=== PATIENT | male | born 1950 | race Caucasian/White ===

== ENCOUNTER 2022-12-20 07:57 | Day surgery (SDC) | payer MEDICARE, BC ==
[2022-12-19 10:16] LABS: BASOPHILS % (AUTO) 0.5 % (0-1); EOSINOPHILS # (AUTO) 0.1 X10'3 (0-0.9); EOSINOPHILS % (AUTO) 2.7 % (0-6); HEMATOCRIT 43.3 % (42.0-52.0); HEMOGLOBIN 14.7 g/dl (14.0-17.9); LYMPHOCYTES # (AUTO) 1.1 X10'3 (1.1-4.8); LYMPHOCYTES % (AUTO) 22.3 % (21-51); MEAN CORPUSCULAR HEMOGLOBIN 33.5 PG (27.0-31.0); MEAN CORPUSCULAR VOLUME 98.5 FL (78-98); MEAN PLATELET VOLUME 7.9 FL (7.4-10.4); MONOCYTES # (AUTO) 0.4 X10'3 (0-0.9); MONOCYTES % (AUTO) 8.5 % (2-12); NEUTROPHILS # (AUTO) 3.3 X10'3 (1.8-7.7); PLATELET COUNT 213 X10'3 (140-440); RED CELL DISTRIBUTION WIDTH 13.1 % (11.5-14.5)
[2022-12-19 10:28] LABS: ALBUMIN 3.7 G/DL (3.4-5.0); ANION GAP 14 (8-16); BLOOD UREA NITROGEN 11 MG/DL (7-18); BUN/CREATININE RATIO 12.6 (10.0-20.0); CHLORIDE 105 MMOL/L (99-107); CREATININE 0.87 MG/DL (0.60-1.10); GLUCOSE 119 MG/DL (70-104); SODIUM 142 MMOL/L (135-145); TOTAL CARBON DIOXIDE 23.2 MMOL/L (24-32); eGFR 87 ML/MIN
[~2022-12-20] VITALS: Ht 182.9 cm; Wt 130.8 kg
[2022-12-20] VITALS (17 sets, daily range): BP systolic 113–160; BP diastolic 65–85; PULSE 47–68; RESP 11–20; TEMP 98.5; O2SAT 93–97
[~2022-12-20 07:57] MED LIST: AMLO2.5T2 PO; AMOX-441 PO; ASPI-1264 PO; ATEN-169 PO; ATOR10TA87 PO; CLOP75TA15 PO; GARL400T2 PO; HYDR-4353 PO; HYDR25TA4 PO; MILK200C4 PO; MORP30CA16 PO; OMEG1CAP2 PO; RANO500T3 PO; UBID1CAP54 PO; VALS160T2 PO; VITAMIN C PO; VITAMIN D PO
[2022-12-20] MEDS ORDERED: normal saline 1000ml 1,000 ML IV SCH (08:10)
[2022-12-20] MEDS ORDERED: morphine 10mg/ml inj. IV ONE (08:10)
[2022-12-20] MEDS ORDERED: diphenhydrAMINE 25mg capsule PO ONE (08:10)
[2022-12-20] MEDS ORDERED: MIDAZolam 1mg/ml 10ml vial IV ONE (08:10)
[2022-12-20] MEDS ORDERED: atropine 0.1mg/ml 10ml syringe IV ONE (08:10)
[2022-12-20] MEDS ORDERED: LORazepam 0.5 MG tablet PO ONE (08:10)
[2022-12-20] MEDS ORDERED: amiodarone 150mg/dext, iso-os 100 ML IV ONE (08:10)
[2022-12-20] MEDS ORDERED: PROP120C2 (08:35)
[2022-12-20] MEDS ORDERED: APIX5TAB3 PO (08:35)
[2022-12-20] MEDS ORDERED: NITR0.4T51 SL (08:35)
[2022-12-20] MEDS ORDERED: IRBE300T18 PO (08:35)
[2022-12-20] MEDS ORDERED: MAGN200T PO (08:35)
[2022-12-20] MEDS ORDERED: IBUP-2697 PO (08:35)
[2022-12-20] MEDS ORDERED: AMI200T (08:35)
== END 2022-12-20 10:40 | disposition home or self-care (01) ==
LOC: SSTAY O 07:57
PROVIDERS: ATTEND Internal Medicine Cardiovascular Disease
DX: I48.19 Other persistent atrial fibrillation (principal); I25.10 Atherosclerotic heart disease of native coronary artery without angina pectoris; J44.9 Chronic obstructive pulmonary disease, unspecified; G25.0 Essential tremor; I10 Essential (primary) hypertension; Z79.01 Long term (current) use of anticoagulants; Z79.899 Other long term (current) drug therapy; Z95.5 Presence of coronary angioplasty implant and graft; F10.10 Alcohol abuse, uncomplicated; F17.290 Nicotine dependence, other tobacco product, uncomplicated
CPT/HCPCS: 36415; 80048; 85025; 85610; 92960; 93005; J0461; J2250; J2274; J7030; Q0163; A4620

== ENCOUNTER 2022-12-22 18:50 | Inpatient (IN) | payer MEDICARE, BC ==
[~2022-12-22] VITALS: Ht 182.9 cm; Wt 119.2 kg
[~2022-12-22 18:50] MED LIST changes: +AMI200T; -AMLO2.5T2 PO; -AMOX-441 PO; +APIX5TAB3 PO; -ATOR10TA87 PO; -CLOP75TA15 PO; -HYDR-4353 PO; -HYDR25TA4 PO; +IBUP-2697 PO; +IRBE300T18 PO; +MAGN200T PO; -MORP30CA16 PO; +NITR0.4T51 SL; +PROP120C2; -RANO500T3 PO; -UBID1CAP54 PO; -VALS160T2 PO
[2022-12-22 19:30] LABS: ALANINE AMINOTRANSFERASE 116 U/L (12-78); ALBUMIN 3.7 G/DL (3.4-5.0); ALBUMIN/GLOBULIN RATIO 1.1 (1.1-1.5); ALKALINE PHOSPHATASE 82 IU/L (46-116); ANION GAP 11 (8-16); ASPARTATE AMINO TRANSFERASE 45 U/L (10-37); BILIRUBIN,TOTAL 1.4 MG/DL (0.1-1.0); BLOOD UREA NITROGEN 12 MG/DL (7-18); BUN/CREATININE RATIO 11.9 (10.0-20.0); CALCIUM 8.9 MG/DL (8.5-10.1); CHLORIDE 103 MMOL/L (99-107); CREATININE 1.01 MG/DL (0.60-1.10); GLUCOSE 114 MG/DL (70-104); POTASSIUM 3.9 MMOL/L (3.5-5.1); SODIUM 139 MMOL/L (135-145); TOTAL CARBON DIOXIDE 25.3 MMOL/L (24-32); eGFR 73 ML/MIN
[2022-12-22 19:33] LABS: BASOPHILS % (AUTO) 0.3 % (0-1); EOSINOPHILS # (AUTO) 0.2 X10'3 (0-0.9); HEMATOCRIT 42.6 % (42.0-52.0); HEMOGLOBIN 14.6 g/dl (14.0-17.9); MEAN CORPUSCULAR HEMOGLOBIN 33.5 PG (27.0-31.0); MEAN CORPUSCULAR HGB CONC 34.2 g/dL (33.0-36.5); MEAN CORPUSCULAR VOLUME 97.9 FL (78-98); MEAN PLATELET VOLUME 8.3 FL (7.4-10.4); MONOCYTES # (AUTO) 0.7 X10'3 (0-0.9); MONOCYTES % (AUTO) 9.5 % (2-12); NEUTROPHILS # (AUTO) 5.9 X10'3 (1.8-7.7); NEUTROPHILS % (AUTO) 75.2 % (42-75); PLATELET COUNT 203 X10'3 (140-440); RED BLOOD COUNT 4.35 X10'6 (4.70-6.10); RED CELL DISTRIBUTION WIDTH 13.5 % (11.5-14.5); WHITE BLOOD COUNT 7.8 X10'3 (4.5-11.0)
[2022-12-22] MEDS ORDERED: iohexol 350MG/ML 100ml bottle IV ONE (22:21)
[2022-12-23] MEDS ORDERED: furosemide 10 MG/1 ML 10ml inj IV ONE (00:10)
[2022-12-23] MEDS ORDERED: morphine 2 MG/ML inj. syringe IV PRN ×2 (00:45)
[2022-12-23] MEDS ORDERED: HYDROcodone/acetaminophen 5mg/325mg tablet PO PRN (00:45)
[2022-12-23] MEDS ORDERED: mag hydrox/Alum hydrox/simeth 30ml oral suspension PO PRN (00:45)
[2022-12-23] MEDS ORDERED: bisacodyl 10mg suppository rectal RC PRN (00:45)
[2022-12-23] MEDS ORDERED: ipratropium/albuterol 3ml nebule NEB PRN (00:45)
[2022-12-23] MEDS ORDERED: acetaminophen 325mg tablet PO PRN ×2 (00:45)
[2022-12-23] MEDS ORDERED: magnesium hydroxide 30ml (MOM) UD suspension PO PRN (00:45)
[2022-12-23] MEDS ORDERED: diphenhydrAMINE 25mg capsule PO PRN (00:45)
[2022-12-23] MEDS ORDERED: acetaminophen 650mg rectal suppository RC PRN (00:45)
[2022-12-23] MEDS ORDERED: ondansetron 4mg rapidly disintigrating tab PO PRN (00:45)
[2022-12-23] MEDS ORDERED: ondansetron/PF 4mg/2ml inj IV PRN (00:45)
[2022-12-23] MEDS ORDERED: diphenhydrAMINE 50 mg/ml inj IV PRN (00:45)
[2022-12-23] MEDS ORDERED: HYDROcodone/acetaminophen 10/325mg tab PO PRN (00:45)
[2022-12-23] MEDS ORDERED: dextrose 50%-water 50ml dispensing syringe IV PRN (00:50)
[2022-12-23] MEDS ORDERED: haloperidol 5mg tablet PO PRN (00:50)
[2022-12-23] MEDS ORDERED: LORazepam 2 mg/ml vial IV PRN (00:50)
[2022-12-23] MEDS ORDERED: hydrALAZINE 20mg/ml inj. IV PRN (00:50)
[2022-12-23] MEDS ORDERED: haloperidol lactate 5mg/ml inj IM PRN (00:50)
[2022-12-23 01:00] VITALS: PULSE 71; RESP 16; O2SAT 97
[2022-12-23 03:45] LABS: LIPASE 80 U/L (73-393); MAGNESIUM 2.3 MG/DL (1.5-2.4); PHOSPHORUS 3.4 MG/DL (2.3-4.5)
[2022-12-23 04:03] LABS: HEMOGLOBIN A1C 5.6 % (4.5-6.2)
[2022-12-23 04:14] LABS: APTT 28 SECONDS (22-32)
--- NOTE | 2022-12-23 07:29 | NUR ---
PT SLEEPING IN BED. NO SX OF DISTRESS/DISCOMFORT.
[2022-12-23] MEDS ORDERED: thiamine 100mg/ml 2ml inj. IV SCH (08:00)
[2022-12-23] MEDS ORDERED: folic acid 1mg/0.2ml inj IV SCH (08:00)
[2022-12-23] MEDS ORDERED: nicotine 21mg patch - 24 hr TD SCH (08:00)
--- NOTE | 2022-12-23 08:15 | NUR ---
Tele report from Marcin , patient in [facility], [facility] , Hr [id number]. DR Nagel paged no new orders as yet
[2022-12-23] MEDS: atorvastatin 20mg tablet PO SCH (08:42)
[2022-12-23] MEDS: docusate sod 100mg capsule PO SCH ×2 (08:42→20:00)
[2022-12-23] MEDS: furosemide 10 MG/1 ML 10ml inj IV SCH ×2 (08:43→22:01)
[2022-12-23] MEDS: pantoprazole 40mg Tablet.DR PO SCH (08:55)
[2022-12-23 11:00] VITALS: BP 128/70; PULSE 83; RESP 19; TEMP 97.9; O2SAT 98
--- NOTE | 2022-12-23 12:58 | NUR ---
DR Nagel paged second time .
[2022-12-23] MEDS ORDERED: potassium Cl 40MEQ/1/2NS 520ml 520 ML IV PRN (13:45)
[2022-12-23] MEDS ORDERED: magnesium 2GM in 50ml NS 50 ML IV PRN (13:45)
[2022-12-23] MEDS ORDERED: magnesium 4gm in 100ml NS 100 ML IV PRN (13:45)
[2022-12-23] MEDS ORDERED: potassium Cl 20 mEq SR tablet PO PRN (13:45)
[2022-12-23] MEDS ORDERED: magnesium Cl slow-release 64mg tablet PO PRN (13:45)
[2022-12-23 14:47] LABS: CHOL/HDL RATIO 4.7 (0.00-4.99); CHOLESTEROL 229 MG/DL (0-200); HDL CHOLESTEROL 49 MG/DL (35-60); LDL CHOLESTEROL 157 MG/DL (50-100); TRIGLYCERIDES 89 MG/DL (20-135)
[2022-12-23] MEDS ORDERED: folic acid 0.4mg tablet PO SCH (15:30)
[2022-12-23] MEDS: multivitamins, therapeutics tablet PO SCH (16:58)
[2022-12-23] MEDS: folic acid 1mg tablet PO SCH (16:59)
[2022-12-23] MEDS: thiamine 100mg tablet PO SCH (17:00)
[2022-12-23 18:00] VITALS: BP 140/74; PULSE 62; RESP 16; TEMP 97.6; O2SAT 95
[2022-12-23 18:46] VITALS: PULSE 76; RESP 16; O2SAT 92
--- NOTE | 2022-12-23 18:52 | NUR ---
DR Shona Holman and DR Lewis into see patient. Patient HR 39-50"s Spoke with patient with regards etoh consumption,and to spouse. patient confirmed that he usually does drink 6 beers/day. patient counseled with regards this and told symptoms of withdrawal. Patient appears stable at this time. Had echo. Report given to Fabby BALES
--- NOTE | 2022-12-23 19:08 | NUR ---
LN spoke with , pt to go to equipment [facility]/lab[facility] 8/7 am, gave order NPO at 0000, hold eliquis/lovenox, RAC 18. Orders updated. Pt aware of procedure.
[2022-12-23 20:00] VITALS: RESP 14; O2SAT 95
[2022-12-23] MEDS ORDERED: enoxaparin 30mg/0.3ml syringe SQ SCH (20:00)
[2022-12-23] MEDS ORDERED: enoxaparin 80mg/0.8ml syringe SUBCUT SCH (20:00)
[2022-12-23] MEDS: K and/or MAG REPLACEMENT MC SCH (20:00)
[2022-12-23] MEDS ORDERED: temazepam 15mg capsule PO PRN (21:00)
[2022-12-23 22:00] VITALS: BP 133/72; PULSE 70; RESP 16; TEMP 97.8; O2SAT 94
[2022-12-24] VITALS (8 sets, daily range): BP systolic 123–172; BP diastolic 74–98; PULSE 63–113; RESP 14–18; TEMP 97.1–98.6; O2SAT 93–97
--- NOTE | 2022-12-24 02:49 | NUR ---
AGREE WITH PHYSICAL THER ASSESSMENT
--- NOTE | 2022-12-24 06:50 | NUR ---
Patient in room PCU 3027. I have received report from Fabby RICH and had the opportunity to ask questions and assume patient care.
[2022-12-24 07:23] LABS: BASOPHILS % (AUTO) 0.6 % (0-1); EOSINOPHILS # (AUTO) 0.2 X10'3 (0-0.9); HEMATOCRIT 51.3 % (42.0-52.0); HEMOGLOBIN 17.5 g/dl (14.0-17.9); LYMPHOCYTES # (AUTO) 1.6 X10'3 (1.1-4.8); LYMPHOCYTES % (AUTO) 23.3 % (21-51); MEAN CORPUSCULAR HEMOGLOBIN 33.6 PG (27.0-31.0); MEAN CORPUSCULAR VOLUME 98.8 FL (78-98); MEAN PLATELET VOLUME 8.6 FL (7.4-10.4); MONOCYTES # (AUTO) 0.7 X10'3 (0-0.9); MONOCYTES % (AUTO) 10.8 % (2-12); NEUTROPHILS # (AUTO) 4.2 X10'3 (1.8-7.7); NEUTROPHILS % (AUTO) 62.3 % (42-75); PLATELET COUNT 254 X10'3 (140-440); RED BLOOD COUNT 5.19 X10'6 (4.70-6.10); RED CELL DISTRIBUTION WIDTH 13.5 % (11.5-14.5); WHITE BLOOD COUNT 6.7 X10'3 (4.5-11.0)
[2022-12-24 07:27] LABS: ALANINE AMINOTRANSFERASE 92 U/L (12-78); ALKALINE PHOSPHATASE 85 IU/L (46-116); ANION GAP 11 (8-16); ASPARTATE AMINO TRANSFERASE 38 U/L (10-37); BILIRUBIN,TOTAL 2.5 MG/DL (0.1-1.0); BLOOD UREA NITROGEN 14 MG/DL (7-18); BUN/CREATININE RATIO 12.6 (10.0-20.0); CALCIUM 9.5 MG/DL (8.5-10.1); CHLORIDE 98 MMOL/L (99-107); CHOL/HDL RATIO 5.2 (0.00-4.99); CHOLESTEROL 219 MG/DL (0-200); CREATININE 1.11 MG/DL (0.60-1.10); GLUCOSE 148 MG/DL (70-104); HDL CHOLESTEROL 42 MG/DL (35-60); LDL CHOLESTEROL 154 MG/DL (50-100); MAGNESIUM 2.3 MG/DL (1.5-2.4); PHOSPHORUS 4.6 MG/DL (2.3-4.5); POTASSIUM 3.3 MMOL/L (3.5-5.1); SODIUM 137 MMOL/L (135-145); TOTAL CARBON DIOXIDE 27.6 MMOL/L (24-32); TOTAL PROTEIN 7.9 G/DL (6.4-8.2); TRIGLYCERIDES 105 MG/DL (20-135); eGFR 65 ML/MIN
[2022-12-24] MEDS: furosemide 10 MG/1 ML 10ml inj IV SCH ×2 (08:00→19:28)
[2022-12-24] MEDS: K and/or MAG REPLACEMENT MC SCH ×2 (08:00→20:00)
[2022-12-24] MEDS: atorvastatin 20mg tablet PO SCH (09:21)
[2022-12-24] MEDS: multivitamins, therapeutics tablet PO SCH (09:22)
[2022-12-24] MEDS: thiamine 100mg tablet PO SCH ×2 (09:23→19:27)
[2022-12-24] MEDS: docusate sod 100mg capsule PO SCH ×2 (09:23→19:27)
[2022-12-24] MEDS: pantoprazole 40mg Tablet.DR PO SCH (09:24)
[2022-12-24] MEDS: losartan 50mg tablet PO SCH (09:25)
[2022-12-24] MEDS ORDERED: midazolam 1 mg/ML 2ml injection ONE (10:58)
[2022-12-24] MEDS ORDERED: nitroGLYCERIN-Tridil 50MG/D5W 250 ML IV ONE (10:58)
[2022-12-24] MEDS ORDERED: verapamil 2.5 mg/ml inj IV ONE (10:58)
[2022-12-24] MEDS ORDERED: LIDOcaine 1% (10mg/ml) 2ml vial ONE (10:58)
[2022-12-24] MEDS ORDERED: fentaNYL/PF 50MCG/1 ML 2ML syringe ONE (10:58)
[2022-12-24] MEDS ORDERED: iohexol 350 MG/ML 50ML vial IV ONE ×2 (10:58→12:07)
[2022-12-24] MEDS ORDERED: heparin 1,000unit/ml 10ml vial 10 ML ONE (10:59)
[2022-12-24] MEDS ORDERED: heparin 1,000 UNITS/NS 500ml 500 ML ONE ×2 (10:59→12:47)
[2022-12-24] MEDS ORDERED: iohexol 350MG/ML 100ml bottle IV ONE ×2 (10:59→12:42)
[2022-12-24] MEDS ORDERED: LIDOcaine 1% (10mg/ml)w/preservative inj. 20ml MDV ONE (11:59)
[2022-12-24] MEDS ORDERED: heparin 25,000 UNIT/250ml bag 250 ML IV ONE (12:42)
[2022-12-24] MEDS ORDERED: clopidogrel 300mg tablet ONE (13:27)
[2022-12-24] MEDS ORDERED: HYDROmorphone 1 mg/ml syringe ONE (13:33)
[2022-12-24 13:40] LABS: ISTAT HGB ART 16.7 g/dl (14.0-17.9); ISTAT Hct ART 49 %PCV (42-52); ISTAT O2 SATURATION ARTERIAL 92 % (95-98); ISTAT SOURCE ART
[2022-12-24] MEDS ORDERED: HYDROcodone/acetaminophen 10/325mg tab PO PRN ×2 (14:40)
[2022-12-24] MEDS ORDERED: acetaminophen 325mg tablet PO PRN ×2 (14:40)
[2022-12-24] MEDS ORDERED: magnesium hydroxide 30ml (MOM) UD suspension PO PRN (14:40)
[2022-12-24 15:03] LABS: ISTAT Hct MIX 49 %PCV (42-52); ISTAT O2 SATURATION MIX VENOUS 61 % (60-80); ISTAT SOURCE VEN
[2022-12-24] MEDS: aspirin 81mg tab.chew PO SCH (15:22)
--- NOTE | 2022-12-24 16:11 | NUR ---
PAGER ID: [phone] MESSAGE: Leonid Tele [phone] re: [id number] Justin Razo patient has appointment at [facility] at 0800 tomorrow and still don't have a discharge routine. Thanks Leonid
--- NOTE | 2022-12-24 18:28 | NUR ---
Problems reprioritized. Patient report given, questions answered & plan of care reviewed with Meg BALES.
[2022-12-24] MEDS: potassium Cl 20 mEq SR tablet PO PRN (19:27)
[2022-12-25] MEDS ORDERED: LORazepam 1 MG tablet PO PRN (00:50)
[2022-12-25] MEDS ORDERED: LORazepam 2 mg/ml vial IV PRN (00:50)
[2022-12-25] MEDS: potassium Cl 20 mEq SR tablet PO PRN (01:40)
[2022-12-25 02:24] VITALS: BP 142/81; PULSE 67; RESP 13; TEMP 98.3; O2SAT 97
[2022-12-25 06:00] VITALS: BP 157/96; PULSE 61; RESP 19; TEMP 98.6; O2SAT 97
--- NOTE | 2022-12-25 06:30 | NUR ---
Problems reprioritized. Patient report given, questions answered & plan of care reviewed with NII Weaver.
--- NOTE | 2022-12-25 06:58 | NUR ---
Problems reprioritized. Patient report given, questions answered & plan of care reviewed with Connor BALES. Pt stable at shift change.
[2022-12-25 07:06] LABS: BASOPHILS % (AUTO) 0.6 % (0-1); EOSINOPHILS # (AUTO) 0.2 X10'3 (0-0.9); EOSINOPHILS % (AUTO) 2.6 % (0-6); HEMATOCRIT 46.5 % (42.0-52.0); HEMOGLOBIN 15.8 g/dl (14.0-17.9); LYMPHOCYTES # (AUTO) 1.9 X10'3 (1.1-4.8); LYMPHOCYTES % (AUTO) 26.2 % (21-51); MEAN CORPUSCULAR HEMOGLOBIN 33.6 PG (27.0-31.0); MEAN CORPUSCULAR HGB CONC 33.9 g/dL (33.0-36.5); MEAN CORPUSCULAR VOLUME 99.1 FL (78-98); MEAN PLATELET VOLUME 8.3 FL (7.4-10.4); MONOCYTES # (AUTO) 1.1 X10'3 (0-0.9); MONOCYTES % (AUTO) 15.3 % (2-12); NEUTROPHILS % (AUTO) 55.3 % (42-75); PLATELET COUNT 220 X10'3 (140-440); RED CELL DISTRIBUTION WIDTH 13.4 % (11.5-14.5); WHITE BLOOD COUNT 7.2 X10'3 (4.5-11.0)
[2022-12-25 07:40] LABS: ALANINE AMINOTRANSFERASE 75 U/L (12-78); ALBUMIN 3.5 G/DL (3.4-5.0); ALKALINE PHOSPHATASE 76 IU/L (46-116); ANION GAP 11 (8-16); ASPARTATE AMINO TRANSFERASE 32 U/L (10-37); BILIRUBIN,TOTAL 1.9 MG/DL (0.1-1.0); BLOOD UREA NITROGEN 13 MG/DL (7-18); BUN/CREATININE RATIO 12.5 (10.0-20.0); CALCIUM 8.8 MG/DL (8.5-10.1); CHLORIDE 100 MMOL/L (99-107); CREATININE 1.04 MG/DL (0.60-1.10); GLUCOSE 107 MG/DL (70-104); MAGNESIUM 2.3 MG/DL (1.5-2.4); PHOSPHORUS 4.6 MG/DL (2.3-4.5); POTASSIUM 3.5 MMOL/L (3.5-5.1); SODIUM 139 MMOL/L (135-145); TOTAL CARBON DIOXIDE 28.5 MMOL/L (24-32); TOTAL PROTEIN 6.9 G/DL (6.4-8.2); eGFR 70 ML/MIN
[2022-12-25 07:45] VITALS: PULSE 63; RESP 18; O2SAT 96
[2022-12-25 08:00] VITALS: RESP 19; O2SAT 97
[2022-12-25] MEDS: K and/or MAG REPLACEMENT MC SCH (08:00)
[2022-12-25] MEDS ORDERED: clopidogrel 75mg tablet PO SCH (08:00)
[2022-12-25] MEDS: furosemide 10 MG/1 ML 10ml inj IV SCH (08:03)
[2022-12-25] MEDS: multivitamins, therapeutics tablet PO SCH (08:08)
[2022-12-25] MEDS: atorvastatin 20mg tablet PO SCH (08:08)
[2022-12-25] MEDS: thiamine 100mg tablet PO SCH (08:08)
[2022-12-25] MEDS: docusate sod 100mg capsule PO SCH (08:08)
[2022-12-25] MEDS: folic acid 1mg tablet PO SCH (08:08)
[2022-12-25] MEDS: aspirin 81mg tab.chew PO SCH (08:08)
[2022-12-25] MEDS: pantoprazole 40mg Tablet.DR PO SCH (08:08)
[2022-12-25 08:10] VITALS: BP_SYST 157; PULSE 67
[2022-12-25] MEDS: losartan 50mg tablet PO SCH (08:10)
[2022-12-25 09:19] VITALS: RESP 18
[2022-12-25 09:25] LABS: PLATELET ESTIMATE NORMAL; TOTAL CELLS COUNTED 100
[2022-12-25] MEDS ORDERED: THIA50TA10 PO (10:34)
[2022-12-25] MEDS ORDERED: FOLI1TAB27 PO (10:34)
[2022-12-25] MEDS ORDERED: ATOR20TA66 PO (10:34)
[2022-12-25] MEDS ORDERED: CLOP75TA34 PO (10:34)
[2022-12-25] MEDS ORDERED: PANT40TA54 PO (10:34)
[2022-12-25] MEDS ORDERED: MULT-25 PO (10:34)
[2022-12-25] MEDS ORDERED: HYDR-3973 PO (11:34)
--- NOTE | 2022-12-25 12:48 | NUR ---
AGREE WITH BU[facility]TER AM ASSESSMENT
--- NOTE | 2022-12-25 13:52 | NUR ---
Pt stable for discharge. Patient signed all d/c paperwork. IV's discontinued prior to discharge. Patient left with all belongings. was present at the time of discharge and patient was assisted out of facility via wheelchair by one staff member. Patient left with in private vehicle to go home.
[2022-12-26] MEDS ORDERED: folic acid 1mg tablet PO SCH (08:00)
[2022-12-26] MEDS ORDERED: thiamine 100mg tablet PO SCH (08:00)
[2022-12-27] MEDS ORDERED: LORazepam 1 MG tablet PO PRN (00:50)
[2022-12-27] MEDS ORDERED: LORazepam 2 mg/ml vial IV PRN (00:50)
== END 2022-12-25 12:32 | disposition home or self-care (01) | DRG 246 ==
LOC: ER 18:51 → ED HOLD 12-23 00:50 → PCU 3S 12-23 08:22
PROVIDERS: ADMIT Family Medicine; ATTEND Family Medicine
PROC: B32T1ZZ Computerized Tomography (CT Scan) of Left Pulmonary Artery using Low Osmolar Contrast (ICD-10-PCS; 2022-12-22)
PROC: B3201ZZ Computerized Tomography (CT Scan) of Thoracic Aorta using Low Osmolar Contrast (ICD-10-PCS; 2022-12-22)
PROC: B32S1ZZ Computerized Tomography (CT Scan) of Right Pulmonary Artery using Low Osmolar Contrast (ICD-10-PCS; 2022-12-22)
PROC: 4A023N8 Measurement of Cardiac Sampling and Pressure, Bilateral, Percutaneous Approach (ICD-10-PCS; principal; 2022-12-24)
PROC: 027034Z Dilation of Coronary Artery, One Artery with Drug-eluting Intraluminal Device, Percutaneous Approach (ICD-10-PCS; 2022-12-24)
PROC: 02F03ZZ Fragmentation in Coronary Artery, One Artery, Percutaneous Approach (ICD-10-PCS; 2022-12-24)
PROC: B2111ZZ Fluoroscopy of Multiple Coronary Arteries using Low Osmolar Contrast (ICD-10-PCS; 2022-12-24)
PROC: B2151ZZ Fluoroscopy of Left Heart using Low Osmolar Contrast (ICD-10-PCS; 2022-12-24)
PROC: B31H1ZZ Fluoroscopy of Right Upper Extremity Arteries using Low Osmolar Contrast (ICD-10-PCS; 2022-12-24)
PROC: 5A09357 Assistance with Respiratory Ventilation, Less than 24 Consecutive Hours, Continuous Positive Airway Pressure (ICD-10-PCS; 2022-12-24)
PROC: 5A09357 Assistance with Respiratory Ventilation, Less than 24 Consecutive Hours, Continuous Positive Airway Pressure (ICD-10-PCS; 2022-12-25)
DX: I11.0 Hypertensive heart disease with heart failure (principal); I50.33 Acute on chronic diastolic (congestive) heart failure; J96.01 Acute respiratory failure with hypoxia; I16.1 Hypertensive emergency; I48.92 Unspecified atrial flutter; I48.20 Chronic atrial fibrillation, unspecified; Z20.822 Contact with and (suspected) exposure to COVID-19; G89.4 Chronic pain syndrome; E78.00 Pure hypercholesterolemia, unspecified; E87.6 Hypokalemia; F10.10 Alcohol abuse, uncomplicated; G47.33 Obstructive sleep apnea (adult) (pediatric); I25.10 Atherosclerotic heart disease of native coronary artery without angina pectoris; E66.9 Obesity, unspecified; M54.9 Dorsalgia, unspecified; J44.9 Chronic obstructive pulmonary disease, unspecified; Z72.0 Tobacco use; Z79.01 Long term (current) use of anticoagulants; Z79.899 Other long term (current) drug therapy; Z80.0 Family history of malignant neoplasm of digestive organs; Z80.8 Family history of malignant neoplasm of other organs or systems; Z82.49 Family history of ischemic heart disease and other diseases of the circulatory system; Z95.5 Presence of coronary angioplasty implant and graft; Z95.1 Presence of aortocoronary bypass graft; Z79.82 Long term (current) use of aspirin; Z71.6 Tobacco abuse counseling; Z71.41 Alcohol abuse counseling and surveillance of alcoholic; Z68.35 Body mass index [BMI] 35.0-35.9, adult
CPT/HCPCS: 36415; 71045; 71275; 76937; 80048; 80053; 80061; 82803; 82948; 83036; 83605; 83690; 83735; 83880; 84100; 84145; 84443; 84484; 85007; 85014; 85025; 85347; 85610; 85730; 87040; 87811; 93005; 93306; 93460; 93571; 94760; 99152; 99153; 99285; A6258; A6449; C1725; C1751; C1760; C1761; C1769; C1874; C1892; C1894; C9600; G0378; J1170; J1644; J1940; J2250; J3010; J3490; J7030; Q9967

== ENCOUNTER 2025-03-23 07:09 | Emergency (ER) | payer MEDICARE, BC ==
[~2025-03-23] VITALS: Ht 180.3 cm; Wt 98.0 kg
[~2025-03-23 07:09] MED LIST changes: -AMI200T; +AMIO200T76; -ATEN-169 PO; +ATOR20TA66 PO; +CLOP75TA34 PO; +FOLI1TAB27 PO; -GARL400T2 PO; -IBUP-2697 PO; -IRBE300T18 PO; +IRBE300T26 PO; -MILK200C4 PO; +MULT-25 PO; +PANT40TA54 PO; +THIA50TA10 PO
--- NOTE | 2025-03-23 07:31 | Physician Documentation ---
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 Schulte, presents today for evaluation of bilateral, right greater than left, knee pain that started several days ago and got worse yesterday when he had difficulty ambulating. He attempted to treat it with the kratom without much success. He is here requesting pain medication. Denies any new trauma. Denies any swelling, denies any fever, chills, denies any redness around the knees. Denies any concern for tobacco, alcohol or illicit substances use Medication Reconciliation Allergies: Coded Allergies: No Known Allergies (Unverified , 03/23/25) Scheduled Amiodarone Hcl (Cordarone), 1 DAILY, (Reported) Apixaban (Eliquis), 1 TAB PO BID, (Reported) Aspirin* (Aspirin*), 1 TABLET PO DAILY, (Reported) Atorvastatin Calcium (Atorvastatin Calcium), 40 MG PO DAILY Clopidogrel Bisulfate (Clopidogrel), 75 MG PO DAILY Folic Acid* (Folic Acid*), 1 MG PO DAILY Irbesartan (Irbesartan), 1 TAB PO DAILY, (Reported) Magnesium (Magnesium), 1 TAB PO DAILY, (Reported) Multivitamin with Folic Acid (Thera Tablet), 1 EACH PO DAILY Fertile-3 Fatty Acids/Fish Oil (Fish Oil 1,000 mg Capsule), 1 CAP PO DAILY, (Reported) Pantoprazole Sodium (Pantoprazole Sodium), 40 MG PO BKF Propranolol Hcl (Propranolol Hcl), 1 DAILY, (Reported) Thiamine HCl (Vitamin B-1), 2 TAB PO DAILY [Vitamin C], 1 TAB PO DAILY, (Reported) [Vitamin D], 1 TAB PO DAILY, (Reported) Scheduled PRN Nitroglycerin SL* (Nitrostat SL*), 1 TAB SL Q5MIN PRN for Chest pain Q5min PRNx3-call MD, (Reported) Past Medical History Past Medical History: High Cholesterol, Hypertension, Chronic Pain, Chronic Back Pain Past Surgical History: orthopedic surgeries Other Past Surgical History: stents Other Past Family History: Patient denies family history of CAD Alcohol Use: Heavy Lives with: Spouse Lives In: Home Review of Systems ROS 10 point review of systems was performed and unless noted above in HPI is negative for acute process/complaint. Physical Exam Physical Exam Vital Signs: Temperature: 98.0, Source: Oral, Heart Rate: 64, Respiratory Rate: 16, BP: 125/72, Pulse Oximetry: 100, Weight: 98.000 Oxygen Flow Rate: 0 Physical Exam Physical examination: GENERAL: Awake, alert, oriented, GCS 15, no apparent distress, non-toxic appearing, answers questions, follows commands appropriately. HEENT: Atraumatic, normocephalic, pupils equal, extraocular muscles intact Active gross movements, sclerae anicteric, mucus membranes moist, no stridor. NECK: Midline, no JVD CARDIOVASCULAR: Good skin perfusion without evidence of pallor, mottling. PULMONARY: Nonlabored, symmetric chest rise, no audible wheezing, no accessory muscle use, no respiratory distress, speaking in full sentences. GASTROINTESTINAL: Not distended. NEUROLOGIC: Lucid with normal mental status. Normal facial symmetry. Moves all extremities symmetrically and with purpose. No truncal ataxia. Speech is fluid without evidence of dysarthria or aphasia, no focal deficits appreciated. EXTREMITIES: Acute deformities Skin: warm, dry PSYCHIATRIC: Normal affect, normal insight, normal concentration. Focused exam: [Bilateral knee examined. The left knee has a old well healed surgical scar. Full range of motion, able to ambulate. No evidence of traumatic injury. No swelling, no erythema, no calor. Neurovascularly intact distally.] Progress Results/Orders Results/Orders Orders - VAMSHI CENTENO DO Knee, Complete (03/23/25 ) Knee, Complete (03/23/25 07:26) Completed Orders - VAMSHI CENTENO DO Hydrocodone/Apap 5/325mg Tab ([place] 5/32 (03/23/25 07:30) Knee, Complete (03/23/25 ) Knee, Complete (03/23/25 07:26) Medications Received in ER Medications (Trade) Dose Ordered Sig/Ronald Route PRN Reason Start Time Stop Time Status Last Admin Dose Admin ([place] 5/325mg tablet) 1 tab ONCE ONCE PO 03/23/25 07:30 03/23/25 07:31 DC 03/23/25 07:45 1 TAB Vital Signs 03/23/25 03/23/25 03/23/25 07:18 07:45 08:34 Temp 98.0 Pulse 64 Resp 16 16 15 B/P (MAP) 125/72 Pulse Ox 100 O2 Flow Rate 0 Medical Decision Making Additional information obtaine: old records, family Findings Facility Status: ED Holds, RME process The plan was discussed with the patient, who demonstrates clear understanding of the plan and is in agreement with the plan unless otherwise noted in the chart. All questions have been answered, all concerns were addressed unless otherwise documented. I was available throughout their ED stay for frequent reassessment and questions. Differential Diagnoses (considered and possible or likely): [Arthritis flare up, need for pain medication management, unlikely to represent septic joint clinically, unlikely fracture or dislocation] ??Differential Diagnoses (considered and unlikely, not requiring evaluation currently): [No evidence of neurovascular injury] MDM Data Please see HPI for the following: Independent Historians and external Records Review. Historian: [Patient] Independent Historians: ?[Record review, ] Medication Management: [Reviewed medication list] Social History and determinants: [Reviewed] Please see the body of the note for the following: Any independent interpretations of ECG, imaging studies. All vitals signs/haemodynamics, ordered tests were independently reviewed and interpreted by myself. Nursing triage complaint and vitals reviewed, additional nursing notes were reviewed as available and I agree unless otherwise noted or documented in contradiction in the chart Vital Signs: Independently reviewed Labs: Independently interpreted Imaging: Independently interpreted Old Medical Records: Independently reviewed, see HPI for relevant summary and information Pulse Oximetry: [97%] interpreted as [normal on room air] by me Additionally notably showing: [Hemodynamically stable] x-ray shows no acute process. Tests considered but not ordered include: [Clinically this is not consistent with a infected joint, there was no joint effusion, Hematologic workup has been considered but does not appear to be necessary given mechanical nature of the injury.] Social Determinants of Health Impact: Patient was evaluated in [facility] [place] to healthcare due to below par ratio of patient to medical providers. [] Comorbid Conditions Impacting Present Evaluation and Care/Treatment: [Known history of arthritis] Management Discussions with other Healthcare Providers: [None] Treatment and Disposition Medication Management (Given or considered): [Pain management]. See EMR for details Consideration for Hospitalization/Escalation/Deescalation of Care: Admission for observation has been considered, [however the patient is able to tolerate p.o., their symptoms are controlled, they are able to rely on oral medications, and their chief complaint/diagnosis can be managed on outpatient basis.] ?ED Course:?[] ?Shared decision making:?[] Code status:?FULL Please see the full Electronic Medical Record for full details of nursing documentation, medications list, other records of complete past medical history and conditions, vital signs, laboratory studies, and any radiologic study interpretations by radiologists. Portions of this note were completed using [employer] dictation software and as a result there may exist minor errors in spelling. I have reviewed elements of past family and social history and agree as included in note. Differential Diagnosis See the body of main note Departure Disposition: 01 HOME / SELF CARE / HOMELESS Impression: Primary Impression: Knee pain Condition: Improved Discharge Instructions: Acute Knee Pain, Adult Referrals: NO PRIMARY CARE PROVIDER (PCP) Prescriptions Hydrocodone Bit/Acetaminophen 5/325 MG ([place] 5/325 MG) 5 Mg/325 Mg Tablet 1 TAB PO Q6H PRN for pain, #14 TAB Prov: VAMSHI CENTENO DO 03/23/25 Education Educated: Patient Educated regarding: diagnosis, treatment, prognosis, need for follow up Signature Scribe Signature: No scribe Attestation: Date: Mar 23, 2025 Time: 07:31 This note accurately reflects clinical decisions, work performed by myself, Vamshi Centeno, VAMSHI BUI DO Mar 23, 2025 07:31
[2025-03-23] MEDS: HYDROcodone/acetaminophen 5mg/325mg tablet PO ONE (07:45)
--- NOTE | 2025-03-23 08:26 | RADIOLOGY REPORT ---
Procedure: DI KNEE, COMP 4 VW MIN 03/23/2025 08:00 AM TECHNIQUE: 3 views of the right knee were obtained. Indication: BILATERAL KNEE PAIN Comparison: DI KNEE, COMP 4 VW MIN on DOS: 03/23/25 FINDINGS: Bones: No acute fracture or dislocation. Tricompartment joint space narrowing and osteophytes noted. Soft tissues: Unremarkable. No radiopaque foreign body. IMPRESSION: 1. No acute osseous abnormality. 2. Moderate tricompartment osteoarthritis.
--- NOTE | 2025-03-23 08:36 | RADIOLOGY REPORT ---
CLINICAL INDICATION: pain TECHNIQUE: DI KNEE, COMP 4 VW MIN left Comparison: DI KNEE, COMP 4 VW MIN on DOS: 03/23/25 FINDINGS/IMPRESSION: : There is no evidence of acute fracture or dislocation. Small joint effusion Left knee arthroplasty.
[2025-03-23] MEDS ORDERED: HYDR-3965 PO (09:00)
[2025-03-23 09:47] VITALS: BP 131/68; PULSE 59; RESP 16; TEMP 98; O2SAT 98
== END 2025-03-23 09:25 | disposition home or self-care (01) ==
LOC: ER 07:09
DX: M25.561 Pain in right knee (principal); M25.562 Pain in left knee; I10 Essential (primary) hypertension; G89.29 Other chronic pain; E78.00 Pure hypercholesterolemia, unspecified; Z96.652 Presence of left artificial knee joint; Z79.82 Long term (current) use of aspirin; Z79.899 Other long term (current) drug therapy
CPT/HCPCS: 73564; 99283